=== PATIENT | male | born 1995 | race Caucasian/White ===

== ENCOUNTER 2020-03-04 18:12 | Emergency (ER) | payer SELFPAY ==
[~2020-03-04] VITALS: Ht 170.2 cm; Wt 79.4 kg
[2020-03-04 18:16] VITALS: Ht 170.2 cm; Wt 79.4 kg
[2020-03-04 19:04] VITALS: BP 127/76
== END 2020-03-04 19:04 | disposition home or self-care (01) ==
LOC: ED 18:12
DX: S90.31XA Contusion of right foot, initial encounter (principal); X58.XXXA Exposure to other specified factors, initial encounter; Y93.89 Activity, other specified; Y92.89 Other specified places as the place of occurrence of the external cause; Y99.8 Other external cause status